=== PATIENT | female | born 1975 | race Caucasian/White ===

== ENCOUNTER 2018-11-10 13:36 | Outpatient (CLI) | payer OTHER | END 2018-11-10 13:48 | disposition home or self-care (01) | LOC: MAMO-SONO 13:36 | DX: R92.0 Mammographic microcalcification found on diagnostic imaging of breast (principal); C50.212 Malignant neoplasm of upper-inner quadrant of left female breast ==

== ENCOUNTER 2018-11-15 15:35 | Inpatient (IN) | payer OTHER ==
[~2018-11-15] VITALS: Ht 175.3 cm; Wt 86.2 kg
== END 2018-11-20 15:08 | disposition home or self-care (01) | DRG 581 ==
LOC: O/R 11-18 05:55 → SURH 11-18 07:00 → SURG 11-18 21:55
PROVIDERS: Plastic Surgery; ADMIT Surgery
PROC: 0HRU076 Replacement of Left Breast using Transverse Rectus Abdominis Myocutaneous Flap, Open Approach (ICD-10-PCS; 2018-11-18)
PROC: C71L1ZZ Planar Nuclear Medicine Imaging of Upper Chest Lymphatics using Technetium 99m (Tc-99m) (ICD-10-PCS; 2018-11-18)
PROC: 0HBU0ZZ Excision of Left Breast, Open Approach (ICD-10-PCS; principal; 2018-11-18 07:00)
PROC: 07B60ZZ Excision of Left Axillary Lymphatic, Open Approach (ICD-10-PCS; 2018-11-18 07:00)
DX: D05.12 Intraductal carcinoma in situ of left breast (principal); Z90.12 Acquired absence of left breast and nipple
CPT/HCPCS: 19303; 38525; 38792; 19340; 78195; A9541

== ENCOUNTER 2019-05-08 08:21 | Day surgery (SDC) | payer OTHER ==
[~2019-05-08 08:21] MED LIST: FOLGARD TABLET1 EACH PO; TAMOXIFEN CITRA20 MG PO
== END 2019-05-08 17:00 | disposition home or self-care (01) ==
LOC: CIR.AMB 08:21
PROVIDERS: Plastic Surgery
PROC: 0HQU0ZZ Repair Left Breast, Open Approach (ICD-10-PCS; 2019-05-08)
PROC: 0H0U0ZZ Alteration of Left Breast, Open Approach (ICD-10-PCS; principal; 2019-05-08 17:15)
DX: C50.912 Malignant neoplasm of unspecified site of left female breast (principal); N65.1 Disproportion of reconstructed breast; Z90.12 Acquired absence of left breast and nipple